=== PATIENT | female | born 1980 | race Caucasian/White ===

== ENCOUNTER 2017-05-29 04:58 | Emergency (ER) | payer OTHER ==
[2017-05-29 05:34] VITALS: BP 110/72; PULSE 74; TEMP 98.3; BMI 20.1
[2017-05-29] MEDS ORDERED: diphenhydrAMINE HCL 25 MG CAPSULE (FP) PO ONE ×2 (06:03→06:07)
--- NOTE | 2017-05-29 06:13 | PDOC ---
History of Present Illness - General Chief Complaint: Rash Stated Complaint: RASH Time Seen by Provider: 05/29/17 05:57 - History of Present Illness Initial Comments: 05/29/17 06:12 CHIEF COMPLAINT: rash HISTORY OF PRESENT ILLNESS: 36 yo F presents to ED with generalized hives. PAST MEDICAL HISTORY: Denies past medical history FAMILY HISTORY: Denies SOCIAL HISTORY: Denies tobacco, alcohol, illicit drug use. SURGICAL HISTORY: Denies ALLERGIES: No known drug allergies REVIEW OF SYSTEMS General/Constitutional: Denies fever or chills. Denies weakness, weight change. HEENT: Denies change in vision. Denies ear pain or discharge. Denies sore throat. Cardiovascular: Denies chest pain or shortness of breath. Respiratory: Denies cough, wheezing, or hemoptysis. Gastrointestinal: Denies nausea, vomiting, diarrhea or constipation. Denies rectal bleeding. Genitourinary: Denies dysuria, frequency, or change in urination. Musculoskeletal: Denies joint or muscle swelling or pain. Denies neck or back pain. Skin and breasts: Rash all over my body. PHYSICAL EXAM General Appearance: Well-appearing, appropriately dressed. No apparent distress , no intoxication. HEENT: EOMI, PERRLA, normal ENT inspection, normal voice, TMs normal, pharynx normal. No conjunctival pallor. No photophobia, scleral icterus. Respiratory/Chest: Lungs CTAB. Cardiovascular: RRR. S1, S2. Musculoskeletal/Extremities: Normal inspection. FROM of all extremities, normal capillary refill. Pelvis Stable. No CVA tenderness. No tenderness to extremities, pedal edema, swelling, erythema or deformity. Integumentary: Generalized macular rash. Appropriate color, dry, warm. No cyanosis, erythema, jaundice or rash Neurologic: landcare facilitator II-XII intact. Fully oriented, alert. Appropriate mood/affect. Motor strength 5/5. No appreciable EOM palsy, facial droop or sensory deficit. Past History - Past Medical History Allergies/Adverse Reactions: Allergies Allergy/AdvReac Type Severity Reaction Status Date / Time No Known Allergies Allergy Verified 05/29/17 05:32 Home Medications: Ambulatory Orders Diphenhydramine HCl [Benadryl -] 25 mg PO Q6H PRN #28 capsule 05/29/17 Epinephrine [Epipen 2-Brandt] 0.3 mg IJ ASDIR #1 kit 05/29/17 - Psycho/Social/Smoking Cessation Hx Suicidal Ideation: No Smoking History: Never smoked Have you smoked in the past 12 months: No Information on smoking cessation initiated: No Hx Alcohol Use: No Drug/Substance Use Hx: No *Physical Exam - Vital Signs Last Vital Signs Temp Pulse Resp BP Pulse Ox 98.3 F 74 14 110/72 100 05/29/17 05:32 05/29/17 05:32 05/29/17 05:32 05/29/17 05:32 05/29/17 05:32 ED Treatment Course - Medications Given in the ED: ED Medications Discontinued Medications Generic Name Dose Route Start Last Admin Trade Name Freq PRN Reason Stop Dose Admin Diphenhydramine HCl 25 mg 05/29/17 06:03 05/29/17 06:09 Benadryl - PO 05/29/17 06:04 25 mg ONCE ONE Administration *DC/Admit/Observation/Transfer Diagnosis at time of Disposition: Urticaria - Discharge Dispostion Disposition: HOME Condition at time of disposition: Stable Admit: No - Prescriptions Prescriptions: Diphenhydramine HCl [Benadryl -] 25 mg PO Q6H PRN #28 capsule PRN Reason: For Itching Epinephrine [Epipen 2-Brandt] 0.3 mg IJ ASDIR #1 kit - Referrals Referrals: Elissa Gorman MD [Staff Physician] - - Patient Instructions Printed Discharge Instructions: DI for Hives Additional Instructions: Please take medications as prescribed. If you experience any swelling of your mouth, lips, tongue, throat, or any difficulty breathing, please use the Epipen prescribed and return to the ER. Follow up with the dumpman (referral provided) for further evaluation of what you are allergic to. Por favor, eleazar los medicamentos segn lo prescrito. Si experimenta hinchazn de la boca, los labios, la lengua, la garganta o cualquier dificultad para respirar, utilice el Epipen prescrito y regrese a la rio de emergencias. Siga con el alergista para dayana evaluacin ms detallada de lo que tiene alergias. Print Language: ENGLISH
--- NOTE | 2017-05-29 06:28 | PDOC ---
*Physical Exam - Vital Signs Last Vital Signs Temp Pulse Resp BP Pulse Ox 98.3 F 74 14 110/72 100 05/29/17 05:32 05/29/17 05:32 05/29/17 05:32 05/29/17 05:32 05/29/17 05:32 ED Treatment Course - Medications Given in the ED: ED Medications Discontinued Medications Generic Name Dose Route Start Last Admin Trade Name Freq PRN Reason Stop Dose Admin Diphenhydramine HCl 25 mg 05/29/17 06:03 05/29/17 06:09 Benadryl - PO 05/29/17 06:04 25 mg ONCE ONE Administration Medical Decision Making - Medical Decision Making 05/29/17 06:27 agree with care from IVANIA Abraham *DC/Admit/Observation/Transfer Diagnosis at time of Disposition: Urticaria - Prescriptions Prescriptions: Diphenhydramine HCl [Benadryl -] 25 mg PO Q6H PRN #28 capsule PRN Reason: For Itching Epinephrine [Epipen 2-Brandt] 0.3 mg IJ ASDIR #1 kit - Referrals Referrals: Elissa Gorman MD [Staff Physician] - - Patient Instructions Printed Discharge Instructions: DI for Hives Additional Instructions: Please take medications as prescribed. If you experience any swelling of your mouth, lips, tongue, throat, or any difficulty breathing, please use the Epipen prescribed and return to the ER. Follow up with the firearms instructor (referral provided) for further evaluation of what you are allergic to. Por favor, eleazar los medicamentos segn lo prescrito. Si experimenta hinchazn de la boca, los labios, la lengua, la garganta o cualquier dificultad para respirar, utilice el Epipen prescrito y regrese a la rio de emergencias. Siga con el alergista para dayana evaluacin ms detallada de lo que tiene alergias. Print Language: SAO TOMEAN
== END 2017-05-29 06:32 | disposition home or self-care (01) ==
LOC: JER 04:58
DX: L50.9 Urticaria, unspecified (principal)
CPT/HCPCS: 99281-25